=== PATIENT | male | born 1960 | race Caucasian/White ===

== ENCOUNTER 2018-11-06 06:00 | Day surgery (SDC) ==
[2018-11-06] MEDS: TETRACAINE 0.5% UNIT-DOSE OP PRN ×2 (06:40→07:12)
[2018-11-06] MEDS: CYCLOGYL 2% OPTH OP PRN ×3 (06:40→06:50)
[2018-11-06] MEDS: BETADINE OPTH PREP OP PRN ×2 (06:40→07:15)
[2018-11-06 06:42] VITALS: TEMP 98.2
[2018-11-06] MEDS ORDERED: BRIMONIDINE TARTRATE 0.2% OPTH SOL OP PRN (06:50)
[2018-11-06] MEDS ORDERED: ZOFRAN 4 MG/2 ML IVP ONE (06:50)
[2018-11-06] MEDS ORDERED: BSS WITH EPINEPHRINE OP ONE (06:50)
[2018-11-06] MEDS ORDERED: LIDOCAINE 1%/PHENYLEPHRINE 1.5% BSS (SURGERY) INTRAOCULA ONE (06:50)
[2018-11-06] MEDS ORDERED: DEX-MOXI-KETOR OPTH INJ 1/0.5/0.4 MG/ML IO ONE (06:50)
[2018-11-06] MEDS ORDERED: VERSED ONE (07:20)
[2018-11-06] MEDS ORDERED: ZOFRAN 4 MG/2 ML ONE (07:20)
[2018-11-06] MEDS ORDERED: SUBLIMAZE ONE (07:20)
[2018-11-06 13:25] VITALS: BP 84/57
== END 2018-11-06 08:25 | disposition home or self-care (01) ==
LOC: SURG 06:00
PROVIDERS: ATTEND Ophthalmology
DX: H25.12 Age-related nuclear cataract, left eye (principal)

== ENCOUNTER 2018-11-20 06:01 | Day surgery (SDC) | payer OTHER ==
[2018-11-20] MEDS: CYCLOGYL 2% OPTH OP PRN ×3 (06:30→06:40)
[2018-11-20] MEDS: TETRACAINE 0.5% UNIT-DOSE OP PRN ×2 (06:30→07:20)
[2018-11-20] MEDS: BETADINE OPTH PREP OP PRN ×2 (06:35→07:20)
[2018-11-20] MEDS ORDERED: ZOFRAN 4 MG/2 ML IVP ONE (06:36)
[2018-11-20] MEDS ORDERED: BRIMONIDINE TARTRATE 0.2% OPTH SOL OP PRN (06:36)
[2018-11-20] MEDS ORDERED: DEX-MOXI-KETOR OPTH INJ 1/0.5/0.4 MG/ML IO ONE (06:36)
[2018-11-20] MEDS ORDERED: LIDOCAINE 1%/PHENYLEPHRINE 1.5% BSS (SURGERY) INTRAOCULA ONE (06:36)
[2018-11-20] MEDS ORDERED: BSS WITH EPINEPHRINE OP ONE (06:36)
[2018-11-20 06:41] VITALS: TEMP 98.2
[2018-11-20] MEDS ORDERED: ZOFRAN 4 MG/2 ML ONE (07:13)
[2018-11-20] MEDS ORDERED: SUBLIMAZE ONE (07:13)
[2018-11-20] MEDS ORDERED: VERSED ONE (07:13)
[2018-11-22 15:06] VITALS: BP 153/66
== END 2018-11-20 08:00 | disposition home or self-care (01) ==
LOC: SURG 06:01
PROVIDERS: ATTEND Ophthalmology
DX: H25.11 Age-related nuclear cataract, right eye (principal)